=== PATIENT | female | born 1965 | race Caucasian/White ===

== ENCOUNTER 2016-11-11 10:48 | Emergency (ER) | payer BC ==
[~2016-11-11] VITALS: Ht 162.6 cm; Wt 134.7 kg
[~2016-11-11 10:48] MED LIST: CETI10TA10 PO; CIPR-255 PO; GLC500 PO; LISI10TA PO; MULT-506 PO; OMEG10007 PO; TRAM-10 PO; VALA1TAB PO
[2016-11-11 10:57] VITALS: TEMP 36.5; Ht 162.6 cm; Wt 134.7 kg
[2016-11-11] MEDS ORDERED: MoRPHine SULFATE 10 MG/ML CARP/VIAL IV STA (11:37)
[2016-11-11] MEDS ORDERED: SODIUM CHLORIDE 0.9% 1000ML 1,000 ML IV STA (11:37)
[2016-11-11] MEDS ORDERED: ONDANSETRON INJ 2 MG/ML 2 ML VIAL IV STA (11:37)
[2016-11-11 11:51] LABS: BASO % 0.2 %; BASO ABS # 0.02 K/uL (0-0.2); COMPLETE YES; EOS % 4.4 %; IG% 0.3 %; LYMPH % 32.1 %; LYMPH ABS # 2.86 K/uL (1.2-3.4); MEAN CELL VOLUME 88.1 fL (80-100); MEAN CORPUSCULAR HEMOGLOBIN 28.9 pg (25-34); MEAN CORPUSCULAR HGB CONC 32.8 g/dl (32-36); MEAN PLATELET VOLUME 10.1 fL (7.4-10.4); MONO % 6.6 %; NEUT % 56.4 %; PLATELET COUNT 413 K/uL (130-400); RED BLOOD COUNT 4.88 M/uL (4.2-5.4)
[2016-11-11] MEDS ORDERED: OPTIRAY 320 IV PRN (12:00)
[2016-11-11] MEDS ORDERED: METF-384 PO (12:00)
[2016-11-11 12:20] LABS: ALKALINE PHOSPHATASE 87 U/L (45-117); ALT/SGPT 21 U/L (12-78); BLOOD UREA NITROGEN 12 mg/dl (7-18); BUN/CREATININE RATIO 15.6 (10-20); CALCIUM 9.5 mg/dl (8.5-10.1); CARBON DIOXIDE 22 mmol/L (21-32); CHLORIDE 106 mmol/L (98-107); CREATININE 0.77 mg/dl (0.60-1.20); GLUCOSE 82 mg/dl (70-99); SODIUM 137 mmol/L (136-145)
[2016-11-11 12:27] LABS: URINE APPEARANCE CLEAR (CLEAR); URINE BILIRUBIN NEG (NEG); URINE COLOR YELLOW; URINE NITRITE NEG (NEG); URINE SPECIFIC GRAVITY 1.018 (1.000-1.030); UROBILINOGEN NEG (NEG)
[2016-11-11 12:32] LABS: MANUAL MICROSCOPIC REQUIRED? NO; REVIEW REQ? NO
[2016-11-11 14:05] LABS: POTASSIUM 4.2 mmol/L (3.5-5.1)
[2016-11-11 14:10] LABS: AST/SGOT 12 U/L (15-37)
--- NOTE | 2016-11-11 14:15 | DIAGNOSTIC IMAGING REPORT ---
CT ABD/PELVIS IV AND ORAL CONT CLINICAL HISTORY: Abdominal and back pain. COMPARISON STUDY: 10/15/2015 TECHNIQUE: Following the IV administration of 93 mL of Optiray-320, CT scan of the abdomen and pelvis was performed from the lung bases to the proximal femurs. Images are reviewed in the axial, sagittal, and coronal planes. IV contrast was administered without complication. A dose lowering technique was utilized adhering to the principles of ALARA. CT DOSE: 1156.92 mGycm FINDINGS: Lower chest: The heart is normal in size and configuration, without pericardial effusion. The lung bases and pleural spaces are clear. Liver: The contrast-enhanced liver is normal in size, contour, and attenuation. There is no intrahepatic biliary ductal dilatation. The hepatic veins and portal veins are patent. Gallbladder: Unremarkable. Spleen: Normal in size and attenuation. Pancreas: Unremarkable. Adrenal glands: Unremarkable. Kidneys: There is symmetric renal cortical enhancement. The kidneys are normal in size without hydronephrosis. Bowel: There are no transition zones to indicate bowel obstruction. By history the appendix is surgically absent. There is colonic diverticulosis. There is no acute diverticulitis. Peritoneum: There is no intraperitoneal free air or abdominal ascites. Vasculature: The abdominal aorta is normal in course and caliber. Adenopathy: None. Pelvic viscera: There are bilateral tubal occlusion device present. No bladder abnormalities are visualized. Skeletal structures: No destructive osseous lesions are seen. IMPRESSION: 1. No acute intra-abdominal or pelvic findings 2. No evidence of bowel obstruction. No evidence of free air 3. Surgically absent appendix 4. Colonic diverticulosis. No evidence of acute diverticulitis. Electronically signed by: Warner Shelby M.D. 11/11/2016 2:13 PM Dictated Date/Time: 11/11/2016 2:09 PM
[2016-11-11 14:17] LABS: PREG INTERNAL NEGATIVE QC NEG CLEAR BACKGROUND; PREG INTERNAL POSITIVE QC POS CONTROL LINE
[2016-11-11 15:10] VITALS: BP 105/58; PULSE 60; O2SAT 97
--- NOTE | 2016-11-12 13:00 | EMERGENCY ROOM VISIT NOTE ---
ED Visit Note First contact with patient: 11:18 Chief Complaint: I am having pain in my upper stomach and back. History of Present Illness: Ms. Matias is a 51 year-old white female who ambulates into the ED accompanied by a male friend complaining of mid thoracic back pain and epigastric abdominal pain. Historically patient reports kidney stones with lithotripsy and is status post appendectomy. She denies any gastrointestinal disorders. Patient reports for the last 4 days she has been experiencing epigastric pain and thoracic back pain. She reports initially her pain started as thoracic back pain radiating into the abdomen and over the last 2 days it has been epigastric pain radiating into the thoracic back. She describes her pain as a stabbing sensation. Her pain does wax and wane in intensity. Currently she rates her discomfort 8/10. She feels like her pain worsens after eating. She has not identified any alleviating factors related to the pain. She has been taken Tums without relief of her discomfort. Social with her pain she reports the first day of her pain she had has multiple episodes of diarrhea that was described as non-melanotic or bloody; this diarrhea has has subsequently resolved. Additionally she reports she has been experiencing intermittently nauseated but has not vomited and she has noted a decrease urine output. She does report she is seen her PCP for these symptoms and he has done blood testing that he reports is normal and currently has a pending abdominal x-ray; during patient's stay in the ED she reports she received a call from her PCPs office who indicated her x-ray was read and shows that she was constipated. A onset of quadrant abdominal pain that started approximately hours ago. Since that time the pain has been . The pain is currently described as . The pain is nonradiating. The pain worsens with and is improved by . has been taken for pain and relief has been achieved. Associated with the pain there has been . Patient denies fevers, chills, sweats, skin eruptions, skin color changes, upper respiratory tract symptoms, shortness of breath, chest pain, rectal bleeding, black/tarry stools, urinary symptoms, hematuria, vaginal bleeding, vaginal discharge, back/flank pain. Review of Systems: As noted above in history of present illness. All body systems were reviewed and found to be negative as noted above. Past Medical History: As previously noted, hypertension. Current Medications: Medications Dose Route/Sig Max Daily Dose Days Date Category Glucophage (Metformin Hcl) 1,000 Mg Tab 1,000 Mg PO BID 11/11/16 Reported Zyrtec (Cetirizine Hcl) 10 Mg Tab 10 Mg PO QAM 02/22/13 Reported Prinivil (Lisinopril) 10 Mg Tab 10 Mg PO QAM 12/04/10 Reported Multivitamin (Multivitamins) Tab 1 Tab PO QAM 08/15/07 Reported Allergies to Medications: Cephalexin. Social History: Patient is currently employed; she feels safe in her home environment; she denies tobacco and alcohol use. Physical Examination: Vital Signs: Date Time Temp Pulse Resp B/P (MAP) Pulse Ox O2 Delivery O2 Flow Rate FiO2 11/11/16 15:10 60 105/58 97 11/11/16 13:50 78 16 116/67 11/11/16 13:08 56 16 107/76 11/11/16 12:12 70 11/11/16 12:05 11/11/16 11:25 79 15 123/85 11/11/16 10:57 36.5 82 18 130/87 97 Room Air GENERAL: 51-year-old female in mild to moderate distress due to pain, nontoxic- appearing, afebrile and hemodynamically stable. NEUROLOGICAL: Awake, alert and oriented to person, place and time. Answering questions appropriately and following commands. Normal gait. Good hand eye coordination. SKIN: Warm, dry and pink. No soft tissue eruptions or trauma noted. HEENT: Atraumatic and normocephalic. PERRLA. Sclera white and conjunctiva pink. Oral cavity moist and pink. Pharynx is nonerythematous or edematous. Speech normal. No lymphadenopathy. Trachea midline. No jugular venous distention. BACK: No tenderness over the bony cervical and lumbar spine. Mild tenderness in the midthoracic area without bony deformity, bony crepitus, swelling, ecchymosis or step-offs. No palpable spasm. No CVA tenderness. THORAX: Lungs sounds are clear to auscultation and equal bilaterally with symmetrical chest wall. No wheezing, rales or rhonchi. No crepitus, tenderness , subcutaneous air or deformities noted. HEART: Regular rate and rhythm. No gallops, rubs or murmurs are appreciated. ABDOMEN: Obese and soft with moderate tenderness in the epigastric area and mild tenderness in the right upper quadrant. Positive bowel sounds in all quadrants. No guarding, rigidity or organomegaly. EXTREMITIES: Moves all extremities well on command and with purpose. All distal neurovascular statuses are intact and equal bilaterally. ED Course: Patient is assessed as noted above. Laboratory Testing: Test 11/11/16 11:20 11/11/16 11:56 11/11/16 13:29 Range/Units White Blood Count 8.90 4.8-10.8 K/uL Red Blood Count 4.88 4.2-5.4 M/uL Hemoglobin 14.1 12.0-16.0 g/dL Hematocrit 43.0 37-47 % Mean Corpuscular Volume 88.1 80-100 fL Mean Corpuscular Hemoglobin 28.9 25-34 pg Mean Corpuscular Hemoglobin Concent 32.8 32-36 g/dl Platelet Count 413 130-400 K/uL Mean Platelet Volume 10.1 7.4-10.4 fL Neutrophils (%) (Auto) 56.4 % Lymphocytes (%) (Auto) 32.1 % Monocytes (%) (Auto) 6.6 % Eosinophils (%) (Auto) 4.4 % Basophils (%) (Auto) 0.2 % Neutrophils # (Auto) 5.01 1.4-6.5 K/uL Lymphocytes # (Auto) 2.86 1.2-3.4 K/uL Monocytes # (Auto) 0.59 0.11-0.59 K/uL Eosinophils # (Auto) 0.39 0-0.5 K/uL Basophils # (Auto) 0.02 0-0.2 K/uL RDW Standard Deviation 47.6 36.4-46.3 fL RDW Coefficient of Variation 14.7 11.5-14.5 % Immature Granulocyte % (Auto) 0.3 % Immature Granulocyte # (Auto) 0.03 0.00-0.02 K/uL Sodium Level 137 136-145 mmol/L Potassium Level 4.2 3.5-5.1 mmol/L Chloride Level 106 98-107 mmol/L Carbon Dioxide Level 22 21-32 mmol/L Anion Gap 9.0 3-11 mmol/L Blood Urea Nitrogen 12 7-18 mg/dl Creatinine 0.77 0.60-1.20 mg/dl Est Creatinine Clear Calc Drug Dose 121.0 ml/min Estimated GFR () 105.1 Estimated GFR (Non- 90.7 BUN/Creatinine Ratio 15.6 10-20 Random Glucose 82 70-99 mg/dl Calcium Level 9.5 8.5-10.1 mg/dl Total Bilirubin 0.5 0.2-1 mg/dl Direct Bilirubin < 0.1 0-0.2 mg/dl Aspartate Amino Transf (AST/SGOT) 12 15-37 U/L Alanine Aminotransferase (ALT/SGPT) 21 12-78 U/L Alkaline Phosphatase 87 45-117 U/L Total Protein 7.6 6.4-8.2 gm/dl Albumin 3.6 3.4-5.0 gm/dl Lipase 233 73-393 U/L Urine Color YELLOW Urine Appearance CLEAR CLEAR Urine pH 5.0 4.5-7.5 Urine Specific [place] 1.018 1.000-1.030 Urine Protein NEG NEG Urine Glucose (UA) NEG NEG Urine Ketones NEG NEG Urine Occult Blood NEG NEG Urine Nitrite NEG NEG Urine Bilirubin NEG NEG Urine Urobilinogen NEG NEG Urine Leukocyte Esterase NEG NEG Human Chorionic Gonadotropin, Qual NEG NEG Abdominal/Pelvic CT with Contrast: Was reviewed by myself and read by the radiologist showing a normal-appearing heart and lung bases, normal-appearing liver, gallbladder, spleen, pancreas, adrenal glands, kidneys with colonic diverticulosis but no signs of diverticulitis, surgically absent appendix, normal-appearing peritoneum, vascular, adenopathy, skeletal structures and pelvic viscera. Patient was hydrated with normal saline, they received for pain EKG: Was read by myself and reviewed with Dr. Ahuja; shows normal sinus rhythm with a ventricular rate of 76 bpm. Normal axis, normal zinc complexes. No acute ST changes indicating ischemia, injury or infarction. This was compared with a previous from 2010 no acute changes were noted. Patient was hydrated with normal saline and she received 6 mg of morphine IV for pain and 4 mg of Zofran IV. Patient was reassessed multiple times during her stay in the emergency department. Patient's case was reviewed with Dr. Ahuja; we agreed on diagnostic approach, treatment, disposition and plan. I did contact Dr. Shelby, radiologist, to specifically look for any significant thoracic spine diseases and on his review he did not feel there was anything abnormal. Patient was educated about today's findings and instructed on her treatment plan ; she verbalizes understanding and agreement with this plan. Clinical Impression: Epigastric and right upper quadrant abdominal pain. Thoracic back pain. Decision-Making: Initially my differential diagnosis I considered esophagitis, GERD, peptic ulcer disease, pancreatitis, hepatitis, cholecystitis, musculoskeletal disorder, pneumonia and other causes. Disposition: Patient discharged home in stable condition accompanied by male friend; prior to departure she was reassessed and subjectively reported she was pain and symptom-free. Plan: Patient was encouraged use [id number] medications for pain every 6 hours as needed including ibuprofen and acetaminophen. Patient was encouraged to stay well-hydrated with increased clear fluids. Patient was encouraged to start [id number] Zantac 150 mg 2 times a day. Patient is encouraged to avoid stomach irritants. 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 Patient was encouraged return ED for worsening/uncontrolled pain, fevers, uncontrolled vomiting, bloody vomitus, bloody stools or any new/concerning symptoms.
[2016-11-29] MEDS ORDERED: CLAR500T3 PO (08:23)
[2016-11-29] MEDS ORDERED: DOCU-94 PO (08:23)
[2016-11-29] MEDS ORDERED: SIME80CH PO (08:23)
[2016-11-29] MEDS ORDERED: METR-163 PO (08:23)
[2016-11-29] MEDS ORDERED: PRLSR20 PO (08:23)
[2016-11-29] MEDS ORDERED: GUAI1TAB69 PO (08:23)
== END 2016-11-11 15:15 | disposition home or self-care (01) ==
LOC: C.EDB 10:49
DX: R10.13 Epigastric pain (principal); R10.11 Right upper quadrant pain; M54.6 Pain in thoracic spine; I10 Essential (primary) hypertension; Z79.84 Long term (current) use of oral hypoglycemic drugs; Z79.899 Other long term (current) drug therapy; Z88.8 Allergy status to other drugs, medicaments and biological substances

== ENCOUNTER → 2016-12-06 | Day surgery (SDC) | payer BC ==
[2016-11-29 08:23] VITALS: BMI 50.0
[~2016-12-06] VITALS: Ht 162.6 cm; Wt 135.4 kg
[~2016-12-06] MED LIST changes: -CIPR-255 PO; +CLAR500T3 PO; +DOCU-94 PO; -GLC500 PO; +GUAI1TAB69 PO; +LIDOCAINE HCL 2% 2 ML VIAL (20MG/ML) ONE; +METF-384 PO; +METR-163 PO; +MIDAZOLAM HCL 1 MG/ML 2ML VIAL ONE; -OMEG10007 PO; +PRLSR20 PO; +PROPOFOL IV EMULSION 10 MG/ML 20 ML VIAL IV ONE; +SIME80CH PO; +SODIUM CHLORIDE 0.9% 500ML 500 ML IV ONE; -TRAM-10 PO; -VALA1TAB PO
[2016-12-06 10:43] VITALS: Ht 162.6 cm; Wt 135.4 kg
[2016-12-06 10:53] VITALS: TEMP 36.4
--- NOTE | 2016-12-06 11:19 | Endo History and Physical ---
History & Physical Date of Service: Dec 06, 2016. Chief Complaint: CONSTIPATION BLOATING EPI PAIN Referring Physician: DR. COULTER History of Present Illness Constipation, epigastric pain Past Medical History Gynecological Problems, Hypertension Past Surgical History Hx Cardiac Surgery: No Hx Internal Defibrillator: No Hx Pacemaker: No Hx Abdominal Surgery: Yes (APPENDECTOMY) Hx Post-Op Nausea and Vomiting: No Hx Cancer Surgery: No Hx Thoracic Surgery: No Hx Orthopedic: Yes (R RCR X 2, L RCR) Hx Urinary Tract Surgery: Yes (CYSTO URS L STENT-07/15/15) Family History IBD Social History Smoking Status: Never Smoker Hx Substance Use: No Hx Alcohol Use: Yes (RARE) Allergies Coded Allergies: Cephalexin (Verified Allergy, Mild, HIVES, 12/06/16) Food (Unverified Allergy, Unknown, SUCRALOSE-HIVES, BLISTERS, 12/06/16) Current Medications Reported Home Medications Medications Dose Route/Sig Max Daily Dose Days Date Category Gas-X (Simethicone) 80 Mg Chw 1 Tab PO HS 11/29/16 Reported Mucinex Maximum Strength (Guaifenesin) 1,200 Mg Tab 1 Tab PO BID 11/29/16 Reported Colace (Docusate Sodium) 100 Mg Cap 1 Cap PO BID 11/29/16 Reported Prilosec (Omeprazole) 20 Mg Capcr 20 Mg PO BID 11/29/16 Reported Flagyl (Metronidazole) 500 Mg Tab 500 Mg PO BID 11/29/16 Reported Glucophage (Metformin Hcl) 1,000 Mg Tab 1,000 Mg PO BID 11/11/16 Reported Zyrtec (Cetirizine Hcl) 10 Mg Tab 10 Mg PO QAM 02/22/13 Reported Prinivil (Lisinopril) 10 Mg Tab 10 Mg PO QAM 12/04/10 Reported Multivitamin (Multivitamins) Tab 1 Tab PO QAM 08/15/07 Reported Vital Signs Weight (Kilograms): 135.45 Height (Feet): 5 Height (Inches): 4 Date Time Temp Pulse Resp B/P (MAP) Pulse Ox O2 Delivery O2 Flow Rate FiO2 12/06/16 10:53 36.4 79 18 110/76 (87) 96 Room Air Physical Exam General Appearance: no apparent distress Respiratory/Chest: Auscultation: breath sounds normal Cardiovascular: Heart Auscultation: RRR Abdomen: Inspection & Palpation: soft Assessment and Plan Abdominal pain - EGD, cscopy
--- NOTE | 2016-12-06 12:21 | GI REPORT ---
Procedure Date: 12/06/2016 11:27 AM Procedure: Colonoscopy Indications: Abdominal pain, Change in bowel habits Medicines: See the Anesthesia note for documentation of the administered medications Complications: No immediate complications. Estimated Blood Loss: Estimated blood loss: none. Procedure: Pre-Anesthesia Assessment: - ASA Grade Assessment: III - A patient with severe systemic disease. After I obtained informed consent, the scope was passed under direct vision. Throughout the procedure, the patient's blood pressure, pulse, and oxygen saturations were monitored continuously. The scope was introduced through the anus and advanced to the terminal ileum. The colonoscopy was performed without difficulty. The patient tolerated the procedure well. The quality of the bowel preparation was good. Findings: The perianal exam findings include non-thrombosed external hemorrhoids. Multiple small-mouthed diverticula were found in the sigmoid colon. A 4 mm polyp was found in the transverse colon. The polyp was sessile. The polyp was removed with a cold biopsy forceps. Resection and retrieval were complete. Hemorrhoids on retroflexion. The exam was otherwise without abnormality. There was no evidence of active or prior IBD. The terminal ileum appeared normal. Biopsies were taken with a cold forceps in the entire colon and from ileum for histology. Impression: - Non-thrombosed external hemorrhoids found on perianal exam. - Diverticulosis in the sigmoid colon. - One 4 mm polyp in the transverse colon, removed with a cold biopsy forceps. Resected and retrieved. - The examination was otherwise normal. - The examined portion of the ileum was normal. - Biopsies were taken with a cold forceps for histology in the entire colon and from ileum. Recommendation: - Discharge patient to home. Follow up pathology results. Isidro Costa M.D. Isidro Costa MD 12/06/2016 12:20:34 PM This report has been signed electronically. Note Initiated On: 12/06/2016 11:27 AM I attest to the content of the Intraoperative Record and orders documented therein, exceptions below
--- NOTE | 2016-12-06 12:24 | GI REPORT ---
Procedure Date: 12/06/2016 11:28 AM Procedure: Upper GI endoscopy Indications: Epigastric abdominal pain; pt reportedly Hp positive, completed rx for Hp with resolution of symptoms while on treatment but relapse of symptoms after Hp tehrapy stopped Medicines: See the Anesthesia note for documentation of the administered medications Complications: No immediate complications. Estimated Blood Loss: Estimated blood loss: none. Procedure: Pre-Anesthesia Assessment: - ASA Grade Assessment: III - A patient with severe systemic disease. After obtaining informed consent, the endoscope was passed under direct vision. Throughout the procedure, the patient's blood pressure, pulse, and oxygen saturations were monitored continuously. The Scope was introduced through the mouth, and advanced to the second part of duodenum. The upper GI endoscopy was accomplished without difficulty. The patient tolerated the procedure well. Findings: The examined esophagus was normal. The GE junction was at 38 cm. The entire examined stomach was normal. Biopsies were taken with a cold forceps for histology. The examined duodenum was normal. Biopsies were taken with a cold forceps for histology. Impression: - Normal esophagus. - Normal stomach. Biopsied. Of note, pt completed Hp therapy 2 days ago, and biopsies may be falsely negative. - Normal examined duodenum. Biopsied. Recommendation: Follow up pathology results. - Discharge patient to home. - Consider PPI therapy. Isidro Costa M.D. Isidro Costa MD 12/06/2016 12:23:39 PM This report has been signed electronically. Note Initiated On: 12/06/2016 11:28 AM I attest to the content of the Intraoperative Record and orders documented therein, exceptions below
--- NOTE | 2016-12-06 12:25 | Discharge Instructions ---
Endoscopy Patient Instructions Date / Procedure(s) Performed Dec 06, 2016. Colonoscopy, EGD Allergy Information Coded Allergies: Cephalexin (Verified Allergy, Mild, HIVES, 12/06/16) Food (Unverified Allergy, Unknown, SUCRALOSE-HIVES, BLISTERS, 12/06/16) Discharge Date / Findings Dec 06, 2016. Diminutive polyp, hemorrhoids, diverticulosis. No evidence of IBD. Normal EGD, biopsies done. Medication Instructions Stopped Medication(s): iron Provider Instructions Activity Restrictions - No exercising or heavy lifting for 24 hours. - Do not drink alcohol the day of the procedure. - Do not drive a car or operate machinery until the day after the procedure. - Do not make any important decisions or sign important papers in 24 hours after the procedure. Following Day: - Return to full activity which may include returning to work/school. Diet Start your diet with liquids and light foods (jello, soup, juice, toast). Then eat your usual diet if not nauseated. Treatment For Common After Affects For mild abdominal pain, bloating, or excessive gas: - Rest - Eat lightly - Lie on right side Follow-Up Information Follow-up with DR. COULTER as scheduled Anesthesia Information What You Should Know You have had a procedure that required some medicine to reduce anxiety and discomfort. This treatment is called moderate sedation. After receiving the treatment, you may be sleepy, but you will be able to breathe on your own. The effects of the treatment may last for several hours. Follow these instructions along with Activity/Diet recommendations noted above: * Do NOT do anything where dizziness or clumsiness would be dangerous. * Rest quietly at home today, then you can be up and about tomorrow. * Have a responsible person stay with you the rest of today. * You may have had an I.V. today. If so, you may take the dressing off later today. Recommendations Call your doctor if: * Trouble breathing * Continuous vomiting for more than 24 hours * Temperature above 101 degrees * Severe abdominal pain or bloating * Pain not relieved by pain medicine ordered * There is increased drainage or redness from any incision * A large amount of rectal bleeding greater than 2-3 tablespoons. (If you had a polyp/s removed or have hemorrhoids, a small amount of blood - from the rectum is to be expected.) * You have any unanswered questions or concerns. IN THE EVENT OF A SERIOUS EMERGENCY, GO TO THE NEAREST EMERGENCY ROOM Your discharge instructions were prepared by provider Isidro Waller. Patient Instructions Signature Page Peggy Matias Patient (or Guardian) Signature/Date: I have read and understand the instructions given to me by my caregivers. Caregiver/RN/Doctor Signature/Date: The above-named patient and/or guardian has received patient instructions on this date. + Original Patient Signature Page (only) stays with chart. Please make copy for patient.
--- NOTE | 2016-12-06 12:32 | Anesthesiology Progress Note ---
Anesthesia Post Op Note Date & Time Dec 06, 2016 at 12:30 Vital Signs Pain Intensity: 0 Vital Signs Past 12 Hours Date Time Temp Pulse Resp B/P (MAP) Pulse Ox O2 Delivery O2 Flow Rate FiO2 12/06/16 12:14 73 18 118/78 (91) 98 Room Air 12/06/16 10:53 36.4 79 18 110/76 (87) 96 Room Air Notes Mental Status: alert / awake / arousable, participated in evaluation Pt Amnestic to Procedure: Yes Nausea / Vomiting: adequately controlled Pain: adequately controlled Airway Patency, RR, SpO2: stable & adequate BP & HR: stable & adequate Hydration State: stable & adequate Anesthetic Complications: no major complications apparent Patient had pre-existing chip of an upper front tooth that was worsened with bite block used by GI in the procedure. Anesthesia did not instrument airway. Patient alerted to the situation and questions answered.
[2016-12-06 12:45] VITALS: BP 137/92; PULSE 69; O2SAT 98
== END | disposition home or self-care (01) ==
LOC: C.GI 10:03
PROVIDERS: ATTEND Internal Medicine Gastroenterology
DX: K29.00 Acute gastritis without bleeding (principal); K29.50 Unspecified chronic gastritis without bleeding; R19.4 Change in bowel habit; D12.3 Benign neoplasm of transverse colon; K64.4 Residual hemorrhoidal skin tags; K57.30 Diverticulosis of large intestine without perforation or abscess without bleeding; K21.9 Gastro-esophageal reflux disease without esophagitis; E66.9 Obesity, unspecified; E28.2 Polycystic ovarian syndrome; I10 Essential (primary) hypertension; Z90.49 Acquired absence of other specified parts of digestive tract